=== PATIENT | female | born 1955 | race Two or more races ===

== ENCOUNTER 2017-05-03 14:15 | Observation (INO) | payer OTHER ==
[2017-05-03 14:47] LABS: COLOR YELLOW; LEUKOCYTE ESTERASE,URINE TRACE (NEGATIVE); NITRITE,URINE NEGATIVE (NEGATIVE)
[2017-05-03 14:56] LABS: BACTERIA 1+ /hpf (NONE SEEN); WBC,URINE 15-25 /hpf (0-3)
[2017-05-03] MEDS ORDERED: NS 1,000 ML IV ONE (15:10)
--- NOTE | 2017-05-03 15:15 | EDPHY ---
H & P Stated Complaint: EPIGASTRIC PAIN FOR 3 DAYS, NOW WITH RIGHT SIDED ABD PAIN, DENIES FEVERS Time Seen by Provider: 05/03/17 14:59 HPI/ROS: Chief Complaint: Abdominal pain HPI: 61-year-old woman presenting with 3 days of abdominal pain. Pain began in the epigastric area but has since migrated to the right lower quadrant. At worst is a 10/10, right now is an 8/10. She has had some nausea but no vomiting or diarrhea. No dark black stools or blood in her stool. No fevers or chills. She denies any aggravating or alleviating factors. No urinary urgency or frequency. Has a history of an ovarian cyst surgery in the past otherwise no abdominal surgeries. No chest pain or shortness of breath. ROS: 10 point Review of Systems is negative except as noted in the HPI. PMH: Reflux Social History: No smoking, no alcohol, no recreational drug use Family History: non-contributory Physical Exam: Gen: Awake, Alert, No Distress HEENT: Nose: no rhinorrhea Eyes: PERRLA, EOMI Mouth: Moist mucosa Neck: Supple, no JVD Chest: nontender, lungs clear to auscultation Heart: S1, S2 normal, no murmur Abd: Soft, she has right lower quadrant tenderness with guarding and rebound with a positive Rovsing sign Back: no CVA tenderness, no midline tenderness Ext: no edema, non-tender Skin: no rash Neuro: CN II-XII intact, Sensation grossly intact, Strength 5/5 in bilateral upper and lower extremities - Medical/Surgical History Other PMH: MIGRAINES, OVARIAN CYST SURG - Social History Smoking Status: Never smoked Constitutional: Initial Vital Signs Temperature (C) 37.0 C 05/03/17 14:32 Heart Rate 74 05/03/17 14:32 Respiratory Rate 18 05/03/17 14:32 Blood Pressure 110/69 05/03/17 14:32 O2 Sat (%) 99 05/03/17 14:32 O2 Delivery Mode Nasal Cannula O2 (L/minute) 2 Allergies/Adverse Reactions: OPTALGIN Allergy (Uncoded 05/03/17 14:32) Home Medications: Medication Instructions Recorded Hormone Replacement 05/03/17 Medical Decision Making - Diagnostics Imaging Results: Imaging Impressions Abdomen CT 05/03/17 15:10 Impression: Acute appendicitis. Findings were discussed with Kevon Cuellar MD at 16:45, on 05/03/2017. Imaging: Discussed imaging studies w/ yard caller Radiologist ED Course/Re-evaluation: Patient has x-ray and clinical examination consistent with appendicitis. Will obtain labs and CT scan is ordered. IV fluids been ordered. Patient is declining pain medicine at this time. CT scan results consistent with acute appendicitis. I have discussed with Dr. Fabián Patricia, general surgery. He will accept the patient transfer to [facility] for appendectomy. He is requesting 1 g of Invanz right now. I have discussed at length with the patient. She understands. Her son will take her to the hospital. - Data Points Laboratory Results: Laboratory Results 05/03/17 15:20 05/03/17 15:20 05/03/17 05/03/17 05/03/17 15:20 15:20 14:44 WBC 10.98 10^3/uL H 10^3/uL (3.80-9.50) RBC 4.92 10^6/uL 10^6/uL (4.18-5.33) Hgb 14.2 g/dL g/dL (12.6-16.3) Hct 41.4 % % (38.0-47.0) MCV 84.1 fL fL (81.5-99.8) MCH 28.9 pg pg (27.9-34.1) MCHC 34.3 g/dL g/dL (32.4-36.7) RDW 13.1 % % (11.5-15.2) Plt Count 228 10^3/uL 10^3/uL (150-400) MPV 10.2 fL fL (8.7-11.7) Neut % (Auto) 79.5 % H % (39.3-74.2) Lymph % (Auto) 12.3 % L % (15.0-45.0) Dubois % (Auto) 5.9 % % (4.5-13.0) Eos % (Auto) 1.6 % % (0.6-7.6) Baso % (Auto) 0.2 % L % (0.3-1.7) Nucleat RBC Rel Count 0.0 % % (0.0-0.2) Absolute Neuts (auto) 8.73 10^3/uL H 10^3/uL (1.70-6.50) Absolute Lymphs (auto) 1.35 10^3/uL 10^3/uL (1.00-3.00) Absolute Monos (auto) 0.65 10^3/uL 10^3/uL (0.30-0.80) Absolute Eos (auto) 0.18 10^3/uL 10^3/uL (0.03-0.40) Absolute Basos (auto) 0.02 10^3/uL 10^3/uL (0.02-0.10) Absolute Nucleated RBC 0.00 10^3/uL 10^3/uL (0-0.01) Immature Gran % 0.5 % % (0.0-1.1) Immature Gran # 0.05 10^3/uL 10^3/uL (0.00-0.10) Sodium 136 mEq/L mEq/L (134-144) Potassium 4.6 mEq/L mEq/L (3.5-5.2) Chloride 97 mEq/L mEq/L (97-110) Carbon Dioxide 26 mEq/l mEq/l (22-31) Anion Gap 13 mEq/L mEq/L (8-16) BUN 11 mg/dL mg/dL (7-23) Creatinine 0.8 mg/dL mg/dL (0.6-1.0) Estimated GFR > 60 Glucose 81 mg/dL mg/dL (70-100) Calcium 10.0 mg/dL mg/dL (8.5-10.4) Total Bilirubin 2.0 mg/dL H mg/dL (0.1-1.4) AST 20 IU/L IU/L (14-46) ALT 39 IU/L IU/L (9-52) Alkaline Phosphatase 77 IU/L IU/L (38-126) Total Protein 7.4 g/dL g/dL (6.3-8.2) Albumin 4.7 g/dL g/dL (3.5-5.0) Lipase 52 IU/L IU/L (23-300) Urine Color YELLOW Urine Appearance CLEAR Urine pH 6.0 (5.0-7.5) Ur Specific [place] <= 1.005 (1.002-1.030) Urine Protein NEGATIVE (NEGATIVE) Urine Ketones TRACE H (NEGATIVE) Urine Blood TRACE H (NEGATIVE) Urine Nitrate NEGATIVE (NEGATIVE) Urine Bilirubin NEGATIVE (NEGATIVE) Urine Urobilinogen 0.2 EU EU (0.2-1.0) Ur Leukocyte Esterase TRACE H (NEGATIVE) Urine RBC 5-10 /hpf H /hpf (0-3) Urine WBC 15-25 /hpf H /hpf (0-3) Ur Epithelial Cells 2+ /lpf H /lpf (NONE-1+) Urine Bacteria 1+ /hpf H /hpf (NONE SEEN) Urine Glucose NEGATIVE (NEGATIVE) Medications Given: Ertapenem 1 gm/ Sodium (Chloride) 100 mls @ 200 mls/hr IV EDNOW ONE PRN Reason: Protocol Stop: 05/03/17 17:20 Last Admin: 05/03/17 17:01 Dose: 100 mls Discontinued Medications Sodium Chloride (Ns) 1,000 mls @ 0 mls/hr IV ONCE ONE; Wide Open PRN Reason: Protocol Stop: 05/03/17 15:11 Last Admin: 05/03/17 15:23 Dose: 1,000 mls Lorazepam (Ativan Injection) 1 mg IVP EDNOW ONE Stop: 05/03/17 15:47 Last Admin: 05/03/17 15:51 Dose: 1 mg Ondansetron HCl (Zofran) 4 mg IVP EDNOW ONE Stop: 05/03/17 15:47 Last Admin: 05/03/17 15:51 Dose: 4 mg Departure - Departure Disposition: [facility] Acute Clinical Impression: Acute appendicitis Condition: Fair
[2017-05-03 15:25] LABS: % IMMATURE GRANULYOCYTES 0.5 % (0.0-1.1); ABSOLUTE IMMATURE GRANULOCYTES 0.05 10^3/uL (0.00-0.10); ADD DIFF? NO; ADD MORPH? NO; ADD SCAN? NO; ATYPICAL LYMPHOCYTE FLAG 0 (0-99); FRAGMENT RBC FLAG 0 (0-99); HEMATOCRIT 41.4 % (38.0-47.0); HEMOGLOBIN 14.2 g/dL (12.6-16.3); LEFT SHIFT FLG 0 (0-99); LIPEMIA HEMOLYSIS FLAG 90 (0-99); MEAN CELL HEMOGLOBIN 28.9 pg (27.9-34.1); MEAN CELL HEMOGLOBIN CONCENTR. 34.3 g/dL (32.4-36.7); MEAN CELL VOLUME 84.1 fL (81.5-99.8); MEAN PLATELET VOLUME 10.2 fL (8.7-11.7); PLATELET CLUMPS FLAG 0 (0-99); PLATELET COUNT 228 10^3/uL (150-400); RED BLOOD CELL COUNT 4.92 10^6/uL (4.18-5.33); RED CELL DISTRIBUTION WIDTH 13.1 % (11.5-15.2)
[2017-05-03 15:40] LABS: ALANINE AMINOTRANSFERASE 39 IU/L (9-52); ALBUMIN 4.7 g/dL (3.5-5.0); ALKALINE PHOSPHATASE 77 IU/L (38-126); ANION GAP 13 mEq/L (8-16); ASPARTATE AMINOTRANSFERASE 20 IU/L (14-46); CARBON DIOXIDE 26 mEq/l (22-31); CHLORIDE 97 mEq/L (97-110); CREATININE 0.8 mg/dL (0.6-1.0); GLOMERULAR FILTRATION RATE > 60; GLUCOSE 81 mg/dL (70-100); POTASSIUM 4.6 mEq/L (3.5-5.2); SODIUM 136 mEq/L (134-144); TOTAL PROTEIN 7.4 g/dL (6.3-8.2)
[2017-05-03] MEDS ORDERED: LORazepam 2 MG/ML INJ IVP ONE (15:46)
[2017-05-03] MEDS ORDERED: ONDANSETRON 4 MG/2 ML VIAL IVP ONE (15:46)
[2017-05-03] MEDS ORDERED: IOPAMIDOL (ISOVUE-300) 100 ML BTL ONE ×2 (15:46→16:22)
[2017-05-03] MEDS ORDERED: ERTAPENEM 1 GM in NS 100 ML IV ONE (16:51)
[2017-05-03] MEDS ORDERED: BUPIVACAINE 0.5% 30 ML SDV ONE (18:53)
[2017-05-03] MEDS ORDERED: MIDAZOLAM 2 MG/2 ML VIAL IVP ONE (18:54)
[2017-05-03] MEDS ORDERED: HEPARIN 1000 UNIT/1 ML MDV ONE (18:54)
[2017-05-03] MEDS ORDERED: ceFAZolin 1 GM/5 ML SYR ONE (18:55)
--- NOTE | 2017-05-03 18:56 | PDANEPAE ---
ANE History of Present Illness lap appy JAZMIN Review of Systems Review of Systems: - Exercise capacity Exercise capacity: >=4 METS ANE Patient History - Allergies Allergies/Adverse Reactions: OPTALGIN Allergy (Uncoded 05/03/17 14:32) - Home Medications Home medications: home medication list seen and reviewed Home Medications: Hormone Replacement 05/03/17 [Last Taken Unknown] - NPO status NPO Status: no food or drink >8 hours NPO Since - Liquids (Date): 05/03/17 NPO Since - Liquids (Time): 11:30 NPO Since - Solids (Date): 05/03/17 NPO Since - Solids (Time): 10:00 - Anes Hx Anes Hx: slow to awaken from anesthesia - Smoking Hx Smoking Status: Never smoked Marijuana use: No - Alcohol Use Alcohol Use: Rarely - Family Anes Hx Family Anes Hx: none ANE Labs/Vital Signs - Labs Result Diagrams: 05/03/17 15:20 05/03/17 15:20 - Vital Signs Blood Pressure: 106/66 Heart Rate: 78 Respiratory Rate: 18 O2 Sat (%): 95 Height: 160 cm Weight: 47 kg ANE Physical Exam - Airway Neck exam: FROM Mallampati Score: Class 1 Mouth exam: normal dental/mouth exam - Pulmonary Pulmonary: no respiratory distress - Cardiovascular Cardiovascular: regular rate and rhythym - ASA Status ASA Status: I ANE Anesthesia Plan Anesthesia Plan: general endotracheal anesthesia (R/B/A explained and patient agrees)
[2017-05-03] MEDS ORDERED: REMIFENTANIL HCL 1 MG VIAL ONE (19:15)
[2017-05-03] MEDS ORDERED: fentaNYL 100 MCG/2 ML INJ ONE (19:15)
[2017-05-03] MEDS ORDERED: LIDOCAINE 2% 100 MG/5 ML SYR ONE (19:15)
[2017-05-03] MEDS ORDERED: PROPOFOL/EMULSION 500 MG/50 ML BOTTLE IV ONE (19:15)
[2017-05-03] MEDS ORDERED: LIDOCAINE HCL 160 MG/4 ML LTA KIT TP ONE (19:16)
[2017-05-03] MEDS ORDERED: ROCURONIUM 50 MG/5 ML VIAL ONE (19:16)
[2017-05-03] MEDS ORDERED: DEXAMETHASONE 4 MG/ML VIAL ONE ×2 (19:27)
[2017-05-03] MEDS ORDERED: ONDANSETRON 4 MG/2 ML VIAL ONE (19:27)
[2017-05-03] MEDS ORDERED: epHEDrine SULFATE 10 MG/ML SYR ONE ×2 (19:27)
--- NOTE | 2017-05-03 19:29 | PDHPUP ---
History & Physical Update H&P update statement: This history and physical update is based on an assessment of the patient which was completed after admission or registration (within 24 hours), but prior to the surgery/procedure. H&P update: H&P reviewed & patient examined, no change in patient's condition since H&P completed
--- NOTE | 2017-05-03 19:34 | PDGENHP ---
History & Physical Chief Complaint: RLQ PAIN History of Present Illness: 3 DAYS OF ABD PAIN WITH EXAM AND CT CONSISTENT WITH ACUTE APPE. WBC ELEVATED. ADMIT FOR LAP APPE/ RISKS AND OPTIONS FULLY DISCUSSED Pertinent Past, Social, Family History: PMH OVARIAN CYSTS/ AUGMENTATION. ROS - 10 PT REVIEW. FAM HX -. MEDS HRT. ALL FLAGYLE, PCN Relevant Physical Exam: GEN AFEBRILE, HEALTHY. HEENT NONICTERIC, NO NODES. CHEST CLEAR/ COR RR. ABD SOFT, TENDER RLQ WITH GUARDING. EXTREM OK. NEURO PHYSIOLOGIC. SKIN NO LESIONS. PSYCH ALERT, ORIENTED, COOPERATIVE Cardiorespiratory Assessment: IMPR: ACUTE APPE. PLAN LAP APPE/ RISKS AND OPTIONS FULLY DISCUSSED
[2017-05-03] MEDS ORDERED: SUGAMMADEX SODIUM 200 MG/2 ML VIAL IVP ONE (19:54)
[2017-05-03] MEDS ORDERED: NALOXONE HCL 0.4 MG/ML INJ IVP PRN (19:57)
[2017-05-03] MEDS ORDERED: LABETALOL HCL 5 MG/ML 20 ML MDV IVP PRN (19:57)
[2017-05-03] MEDS ORDERED: OXYCODONE/APAP 5/325 TAB PO PRN ×2 (19:57→20:33)
[2017-05-03] MEDS ORDERED: ALBUTEROL 3 ML DEYVIAL IH PRN (19:57)
[2017-05-03] MEDS ORDERED: fentaNYL 100 MCG/2 ML INJ IVP PRN (19:57)
[2017-05-03] MEDS ORDERED: ONDANSETRON 4 MG/2 ML VIAL IVP PRN (19:57)
[2017-05-03] MEDS ORDERED: DEXAMETHASONE 4 MG/ML VIAL IVP PRN (19:57)
[2017-05-03] MEDS ORDERED: ACETAMINOPHEN 500 MG TAB PO PRN (19:57)
[2017-05-03] MEDS ORDERED: PROMETHAZINE HCL 25 MG/ML INJ IVP PRN (19:57)
[2017-05-03] MEDS ORDERED: METOCLOPRAMIDE 10 MG/2 ML VIAL IVP PRN (19:57)
[2017-05-03] MEDS ORDERED: LR 500 ML IV PRN (19:57)
[2017-05-03] MEDS ORDERED: MEPERIDINE 25 MG/ML SYR IVP PRN (19:57)
[2017-05-03] MEDS ORDERED: HYDROCODONE/APAP 5/325 TAB PO PRN (19:57)
[2017-05-03] MEDS ORDERED: KETOROLAC 30 MG/1 ML SDV ONE (20:05)
[2017-05-03] MEDS ORDERED: NALOXONE HCL 0.4 MG/ML INJ ONE (20:10)
--- NOTE | 2017-05-03 20:26 | POSTANESTH ---
Post Anesthetic Evaluation Cardiovascular Status: Normal, Stable Respiratory Status: Normal, Stable Level of Consciousness/Mental Status: Can Participate in Eval Pain Control: Adequate, Prn Tx Ordered Nausea/Vomiting Control: Adequate, Prn Tx Ordered Complications Possibly Related to Anesthesia: None Noted
--- NOTE | 2017-05-03 20:31 | POSTOPPROG ---
Post Op Note Date of Operation: 05/03/17 Surgeon: Fabián Patricia Anesthesiologist: JANIE Anesthesia: GET(General Endotracheal) Pre-op Diagnosis: ACUTE APPE Post-op Diagnosis: KYLIE Indication: PAIN Procedure: LAP APPE Findings: ACUTE, NONPERFORATED Inf/Abcess present in the surg proc area at time of surgery?: Yes Depth: Organ Space EBL: Minimal Complications: 0 Specimen(s): APPENDIX
[2017-05-03] MEDS ORDERED: HYDROmorphONE/DILAUDID 1 MG/ML INJ IVP PRN (20:33)
[2017-05-03] MEDS ORDERED: LR 1,000 ML IV ONE (20:42)
[2017-05-03] MEDS ORDERED: D5W 1/2 NS W/ 20 KCl/L 1,000 ML IV SCH (20:45)
[2017-05-04] MEDS: KETOROLAC 15 MG/1 ML SDV IVP SCH ×3 (00:04→12:07)
[2017-05-04] MEDS ORDERED: ERTAPENEM 1 GM in NS 100 ML IV SCH (09:00)
[2017-05-04 09:40] VITALS: BP 82/46; PULSE 77; RESP 17; TEMP 98; O2SAT 96
--- NOTE | 2017-05-04 10:40 | SOAPPROG ---
SOAP Progress Note Assessment/Plan: Assessment: DOING GREAT/ AFEBRILE/ WOUNDS OK/ ABD SOFT Plan:HOME 05/04/17 10:39 Objective: Vital Signs Temp Pulse Resp BP Pulse Ox 36.7 C 77 17 82/46 L 96 05/04/17 09:00 05/04/17 09:00 05/04/17 09:00 05/04/17 09:00 05/04/17 09:00 05/03/17 05/04/17 05/05/17 05:59 05:59 05:59 Output Total 300 Balance -300 ICD10 Worksheet Patient Problems: Problems Problem Status Onset Acute appendicitis Acute
[2017-05-04] MEDS ORDERED: FLU VACC QS 2017-18 (3YR+)/PF 0.5 ML SYR (FLUARIX QUAD) IM ONE (13:30)
--- NOTE | 2017-05-06 11:46 | GOP ---
[f rep st] OPERATIVE REPORT DATE OF OPERATION: SURGEON: Fabián Patricia MD PLANNING CONSULTANT: None. ANESTHESIOLOGIST: Dr. Natarajan. PREOPERATIVE DIAGNOSIS: Acute appendicitis. POSTOPERATIVE DIAGNOSIS: Acute appendicitis. PROCEDURE PERFORMED: Laparoscopic appendectomy. FINDINGS: The patient was found to have acute suppurative nonperforated appendicitis. ESTIMATED BLOOD LOSS: Negligible. DESCRIPTION OF PROCEDURE: Patient taken to the operating room where she received satisfactory genera l endotracheal anesthesia by Dr. Natarajan. She was placed in supine position and prepped and draped in the usual sterile fashion. A periumbilical incision was made. A Veress needle was inserted. Pneumo peritoneum was established. Trocar was introduced. Laparoscope introduced. Good visualization was obtained. Two other trocars were placed in the lower abdomen under direct vision. The appendix was elevated up from its retro ileal position. The mesoappendix was divided with a Harmonic scalpel with care to avoid injury to the ileum. It was dissected back to the base and was skeletonized. It was then divided with the Endo-MARTINEZ stapler and placed in a specimen bag and extracted through the upper m idline port site. Hemostasis was assured. There were no other major areas of contamination or probl ems in the abdomen. The tubes and ovaries appeared to be normal. The trocars were removed under dir ect vision. Trocar sites were closed with 0 Vicryl for the fascia, 4-0 Monocryl subcuticular stitch for the skin. All layers were infiltrated with Marcaine. She tolerated the procedure wel l. COMPLICATIONS: No complications. DISPOSITION: She was taken to the recovery room in good condition. /[id number]/MODL
== END 2017-05-04 13:00 | disposition home or self-care (01) ==
LOC: CED 14:15 → FSGY 18:15 → INTOOBSV 22:26 → FOB 22:26
PROVIDERS: ADMIT Surgery; ATTEND Surgery
PROC: 0DTJ4ZZ Resection of Appendix, Percutaneous Endoscopic Approach (ICD-10-PCS; principal; 2017-05-03 18:00)
DX: K35.80 Unspecified acute appendicitis (principal); Z23 Encounter for immunization
CPT/HCPCS: 44970; 74177; 90471; G0378; 80053-PO; 81003-PO; 81015-PO; 83690-PO; 85025-PO; G0008; J1100; J1335; J1885; J2001; J2060; J2250; J2310; J2405; J2704; J3010; Q9967